=== PATIENT | male | born 1970 | race Caucasian/White ===

== ENCOUNTER 2023-09-25 13:46 | Emergency (ER) | payer BC, SELFPAY ==
[2023-09-25 13:48] VITALS: BP 104/82
[2023-09-25 13:57] VITALS: BP 104/82; BMI 33.8
[2023-09-25 14:00] VITALS: BP 92/69
[2023-09-25 15:00] VITALS: BP 93/71
[2023-09-25] MEDS: NSS 1000 IV (15:46)
[2023-09-25 15:55] LABS: % Basophils 0.9 % (0-2); % Eosinophils 1.1 % (0-6); % Immature Granulocytes 1.3 % (0-0.5); % Lymphocytes 18.8 % (20.5-51.1); % Monocytes 5.6 % (1.7-9.3); % Neutrophils 72.3 % (42.2-75.2); Absolute Basophils 0.1 10^3/uL (0-0.2); Absolute Eosinophils 0.1 10^3/uL (0-0.7); Absolute Immature Granulocytes 0.1 10^3/uL (0-0.05); Absolute Lymphocytes 1.4 10^3/uL (1.2-3.4); Absolute Monocytes 0.4 10^3/uL (0.1-0.6); Absolute Neutrophils 5.4 10^3/uL (1.4-6.5); Hematocrit 49.3 % (39.0-52.0); Hemoglobin 17.3 g/dL (13.0-18.0); Mean Corp Hgb Conc. 35.1 g/dL (33.0-37.0); Mean Corpuscular Hgb 31.5 pg (27.0-31.0); Mean Corpuscular Volume 89.6 fL (80.0-94.0); Mean Platelet Volume 9.6 fL (7.4-10.4); Nucleated Red Blood Cells % 0 % (-); Platelet Count 313 10^3/uL (130-400); Red Cell Dist. Width 12.6 % (11.5-14.5); White Blood Cell Count 7.5 10^3/uL (4.8-10.8)
[2023-09-25 16:00] VITALS: BP 102/72
[2023-09-25 16:07] LABS: ALT (SGPT) 54 U/L (0-50); AST (SGOT) 46 U/L (17-59); Albumin 4.9 g/dl (3.5-5.0); Alkaline Phosphatase 86 U/L (38-126); Blood Urea Nitrogen 7 mg/dl (9-20); Calcium 9.1 mg/dl (8.4-10.2); Carbon Dioxide 18 mmol/L (22-30); Chloride 107 mmol/L (98-107); Estimated Creatinine Clearance 95 ml/min; Glucose 102 mg/dl (70-99); Potassium 4.4 mmol/L (3.5-5.1); Sodium 137 mmol/L (135-145); Total Bilirubin 0.5 mg/dl (0.2-1.3); Total Protein 8.3 g/dl (6.3-8.2); eGFR > 60.00
--- NOTE | 2023-09-25 16:17 | ED.GENMED ---
History of Present Illness
General
Chief Complaint: Alcohol Problem
Source: patient and spouse
Exam Limitations: none
Time Seen by Provider: 09/25/23 15:03
Nursing documentation reviewed up to this point in time: agreed with
Travel History
Have you had any contact with someone who has COVID-19?: No
Do you have any symptoms of coronavirus? Fever > 100 degrees, chills, cough, shortness of breath, sore throat, loss of taste or smell, muscle aches, or headache?: No
History of Present Illness
History of Present Illness:
60-year-old male with past medical history of daily alcohol use depression presenting to the emergency department today after an episode where he became somewhat unconscious at home after drinking large amount of alcohol. He was brought in by EMS
after his called EMS. Denies any trauma or falls. At this point he is awake and denies any symptoms
Review of Systems
Review of Systems
Allergies reviewed?: Yes
All Other Systems: ROS reviewed and negative except as documented in HPI and ROS
Phy Exam
Physical Exam
Physical Exam:
GENERAL: Alert , in no apparent distress
EYE: pupils equal and reactive
NECK: Supple, no significant adenopathy.
ENT: o/p clr, mmm.
CARDIAC: Regular rate and rhythm .
LUNGS: Clear breath sounds bilaterally, no acute respiratory distress, no wheezes/rales/rhonchi
ABDOMEN: Soft, without focal tenderness, no r/g, no cvat
NEUROLOGICAL: Alert and oriented, no focal neuro deficits
SKIN: Warm and dry, skin intact.
MUSCULOSKELETAL: No edema, well perfused.
PSYCH: Normal and appropriate interaction.
Scores
Withdrawal Assessment of Alcohol
Withdrawal Assessment Completed?: No
Course
Orders/Labs/Results
Orders:
Orders
09/25/23 15:38
EKG [Electrocardiogram (*1)] Urgent
Reason for Study: Fatigue / Weakness
EKG- Treatment ONCE
09/25/23 15:39
0.9% Sodium Chloride 1000 ml [Nss] 1,000 ml IV BOLUS
09/25/23 15:46
CBC/With Diff [Complete Blood Count/With Diff] Urgent
CMP [Comprehensive Metabolic Panel] Urgent
Abnormal Lab Results
09/25/23
15:46
MCH 31.5 H pg
(27.0-31.0)
Abs Immat Gran (auto) 0.1 H 10^3/uL
(0-0.05)
Immature Gran % 1.3 H %
(0-0.5)
Lymphocytes % 18.8 L %
(20.5-51.1)
Carbon Dioxide 18 L mmol/L
(22-30)
BUN 7 L mg/dl
(9-20)
Glucose 102 H mg/dl
(70-99)
ALT 54 H U/L
(0-50)
Total Protein 8.3 H g/dl
(6.3-8.2)
09/25/23 15:46
09/25/23 15:46
Vital Signs
Initial and Last Documented VS:
Initial Vital Signs
BP
104/82
09/25/23 13:48
Last Documented Vital Signs
Temp Pulse Resp BP Pulse Ox
97.6 F 89 18 93/71 96
09/25/23 13:57 09/25/23 15:45 09/25/23 15:45 09/25/23 15:00 09/25/23 15:45
MDM/Problems Addressed
MDM/Problems Addressed:
52-year-old male presenting to the emergency department today with concerns of an episode where he seemed to be passing out according to his . Otherwise he feels well no symptoms at this time he claims that he was drinking too much but
otherwise feels well. Here vital signs are normal patient no acute distress labs unremarkable patient's symptoms improving throughout ER stay stable for discharge return precautions given. He was offered information for alcohol abuse.
*Critical Care Note
Total Time (30-74mins, 75-104mins- exclusive of procedures): Not Applicable
ED Attending Note
-
Portions of this chart may have been created with voice recognition software.� Occasional wrong word or��sound alike� substitutions may have occurred due to the inherent limitations of voice recognition software.
Discharge Plan
Departure
Patient Disposition: Home (Routine Discharge)
Date of Disposition: 09/25/23
Time of Disposition: 16:17
Patient with high blood pressure during this ER visit?: No
Condition: Good
Covid-19: Not Applicable
Discharge Problem:
Alcohol intoxication
Instructions: Alcohol Poisoning (DC)
Referrals:
Liliana Barahona CRNP [Family Provider] -
Activity Restrictions/Additional Instructions:
You came to the emergency department today after an episode after drinking alcohol. Please abstain in the future. Return to the emergency department for any worsening, new or concerning symptoms.
Interventions
Interventions:
*Risk Screen - Suicide Last Done: 09/25/23 13:57
*General Assessment Last Done: 09/25/23 13:57
*Neglect/Abuse Screening Last Done: 09/25/23 13:57
ED- Neurological Assessment Last Done: 09/25/23 14:13
ED-Psychological Assessment Last Done: 09/25/23 14:13
== END 2023-09-25 17:03 | disposition home or self-care (01) ==
LOC: EMR 13:46
PROVIDERS: Physician Assistant; EMERGENCY PHYSICIAN Emergency Medicine; FAMILY PHYSICIAN Nurse Practitioner
DX: F10.129 Alcohol abuse with intoxication, unspecified (principal)
CPT/HCPCS: 99284; 96360; 80053; 85025; 93005

== ENCOUNTER → 2024-05-10 09:23 | Outpatient (REF) | payer OTHER, SELFPAY ==
[2024-05-11 13:35] LABS: Mumps Virus IgG Negative; Rubeola (Measles) IgG Positive; Varicella Zoster IgG (VZV) Positive
[2024-05-11 19:19] LABS: Rubella Positive
== END ==
LOC: OHS 09:23
PROVIDERS: ATTENDING PHYSICIAN Nurse Practitioner Family
DX: Z13.9 Encounter for screening, unspecified (principal); Z23 Encounter for immunization
CPT/HCPCS: 36415; 71046; 86735; 86762; 86765; 86787

== ENCOUNTER 2025-05-31 19:24 | Emergency (ER) | payer SELFPAY ==
[2025-05-31 19:30] VITALS: BP 175/102
--- NOTE | 2025-05-31 22:04 | ED.GENMED ---
History of Present Illness
General
Chief Complaint: Musculo-Skeletal Complaint
Time Seen by Provider: 05/31/25 22:04
History of Present Illness
History of Present Illness:
FOCUSED PAST MEDICAL HISTORY
- Alcohol abuse, depression
REVIEW OF OLD RECORDS
- The patient was seen here with alcohol intoxication September 2023
Note:
CHIEF COMPLAINT(S)
Thumb pain after patient interaction.
HISTORY OF PRESENT ILLNESS
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 The patient attempted to help the patient turn and sustained an injury to the thumb
joint due to the patients strong commissioning specialist. The initial pain was significant but has since subsided, though there is still a twinge during certain movements. The range of motion in the thumb remains good, and the current pain level is mild. Upon
evaluation, there was no indication of a fracture on the X-ray, though the radiologists report is pending. The possibility of ligament strain was considered. The patient reports the thumb no longer requires pain medication and mostly experiences
discomfort during specific thumb movements.
PHYSICAL EXAM
General: Alert, no acute distress.
Skin: Warm, dry.
Head: Normocephalic, atraumatic.
Neck: Supple, trachea midline.
Eye Ears, nose, mouth and throat: Oral mucosa moist.
Cardiovascular: Normal peripheral perfusion, No edema.
Respiratory: Respirations are non-labored.
Gastrointestinal : Abdomen nondistended
Back: Normal range of motion, Normal alignment.
Musculoskeletal: Good range of motion in the thumb, no obvious deformity noted, normal function and extension at the metacarpophalangeal joint and the interphalangeal joint.
Neurological: Alert and oriented to person, place, time, and situation, No focal neurological deficit observed.
Psychiatric: Cooperative, appropriate mood & affect.
PLAN
- No immediate intervention recommended aside from self-care.
- Monitor symptoms, and if there is concern or increased pain, follow up with Dr. Pang, an on-call older worker specialist.
- Consider reach out if mobility or pain level changes adversely.
DIFFERENTIAL DIAGNOSIS
The Differential Diagnosis includes, in no particular order and is not limited to:
- Thumb ligament strain
- Metacarpal bone fracture (though unlikely based on initial assessment)
- Soft tissue injury
- Joint sprain
- Tendon injury
- Simple contusion
- Osteoarthritis exacerbation
- Trigger thumb
- De Quervains tenosynovitis
- Reflected pain from cervical spine issues
Disposition:
SUMMARY OF ENCOUNTER
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 The examination revealed a good active range of motion in the right thumb
without any abnormalities seen on imaging. There was a consideration of right thumb sprain due to ligament strain from the incident.
PLAN
The patient is advised to continue with self-care at home, monitor symptoms, and follow-up with Dr. Pang, an on-call older worker specialist if there is an increase in pain or mobility issues.
INDEPENDENT REVIEW OF LABS AND INTERPRETATION OF TESTS
My independent interpretation of the right thumb X-ray is that there is no abnormality seen, with no indication of fracture.
MEDICATION RECONCILIATION
Prescription medication was not deemed necessary, as the patient reported the thumb no longer required pain medication.
MEDICAL DECISION MAKING
- Complexity of Data Reviewed: The differential diagnosis includes thumb ligament strain, metacarpal bone fracture (unlikely), soft tissue injury, joint sprain, tendon injury, simple contusion, osteoarthritis exacerbation, trigger thumb, De
Quervains tenosynovitis, and reflected pain from cervical spine issues.
- Data:
Category 1: Reviewed imaging studies (X-ray of the right thumb, showing no abnormalities).
Category 2: My independent interpretation indicates no abnormalities seen in the imaging.
- Risk: Consideration of admission/observation was contemplated given the initial incident and potential for ligament strain. However, the patient is safe for outpatient management with close follow-up. The reasoning is that the work-up is
reassuring with no indication of acute life/organ-threatening processes, and the patients symptoms are well-controlled with stable vitals.
DIAGNOSIS
Right thumb sprain (ICD-10: S63.501A).
RADIOLOGY
- I see no abnormality of the right thumb
Phy Exam
Physical Exam
Physical Exam:
See HPI
Course
Orders/Labs/Results
Orders:
Orders
05/31/25 19:26
Thumb/Finger 2 View Rt [CR Finger(s)/thumb Min 2 Vw Rt] Urgent
Comment:
Reason For Exam: pain
Indicate Which Finger:: Thumb
Vital Signs
Initial and Last Documented VS:
Initial Vital Signs
Temp Pulse Resp BP Pulse Ox
36.2 C 106 18 175/102 97
05/31/25 19:30 05/31/25 19:30 05/31/25 19:30 05/31/25 19:30 05/31/25 19:30
Last Documented Vital Signs
Temp Pulse Resp BP Pulse Ox
36.2 C 106 18 175/102 97
05/31/25 19:30 05/31/25 19:30 05/31/25 19:30 05/31/25 19:30 05/31/25 22:05
*Pulse Oximetry
SaO2: 97
Oxygen Mode of Delivery: Room air
Patient hypoxic: no
*Critical Care Note
Total Time (30-74mins, 75-104mins- exclusive of procedures): Not Applicable
ED Attending Note
-
Portions of this chart may have been created with voice recognition software.� Occasional wrong word or��sound alike� substitutions may have occurred due to the inherent limitations of voice recognition software.
Discharge Plan
Departure
Patient Disposition: Home (Routine Discharge)
Date of Disposition: 05/31/25
Time of Disposition: 22:32
Patient with high blood pressure during this ER visit?: Yes
Discharge Problem:
Sprain of right thumb
Instructions: Sprain (DC), BLOOD PRESSURE
Referrals:
Liliana Barahona CRNP [Family Provider, General]
Vazquez Domínguez MD [Active, Orthopedics]
Activity Restrictions/Additional Instructions:
Follow up with ortho, Dr. Domínguez, if needed. Motrin for pain.
Interventions
Interventions:
*Risk Screen - Suicide Last Done: 05/31/25 19:33
*Neglect/Abuse Screening Last Done: 05/31/25 19:33
*Nursing Disposition Last Done: 05/31/25 22:41
ED-Musculoskeletal Assessment Last Done: 05/31/25 21:35
Discharge Date and Time
Discharge Date/Time: 05/31/25 22:41
Print Language: FRENCH
== END 2025-05-31 22:41 | disposition home or self-care (01) ==
LOC: EMR 19:24
PROVIDERS: EMERGENCY PHYSICIAN Emergency Medicine; FAMILY PHYSICIAN Nurse Practitioner
DX: S63.601A Unspecified sprain of right thumb, initial encounter (principal); W50.2XXA Accidental twist by another person, initial encounter; Y99.0 Civilian activity done for income or pay; R03.0 Elevated blood-pressure reading, without diagnosis of hypertension; F10.10 Alcohol abuse, uncomplicated; F32.A Depression, unspecified
CPT/HCPCS: 99283; 73140